=== PATIENT | female | born 1995 | race Caucasian/White ===

== ENCOUNTER 2019-06-08 18:21 | Emergency (ER) | payer OTHER ==
[2019-06-08] MEDS ORDERED: CLEOCIN300 MG PO (18:51)
[2019-06-08 18:59] VITALS: BP 125/77
== END 2019-06-08 18:59 | disposition home or self-care (01) | DRG 158 ==
LOC: ED 18:21
DX: K04.7 Periapical abscess without sinus (principal); K02.7 Dental root caries; M84.68XA Pathological fracture in other disease, other site, initial encounter for fracture

== ENCOUNTER 2019-07-22 | Emergency (ER) | payer OTHER ==
[~2019-07-22] MED LIST: CLEOCIN300 MG PO
[2019-07-22 02:06] LABS: HEMATOCRIT 34.6 % (37.0-47.0); HEMOGLOBIN 11.6 g/dl (12.0-16.0); IMMATURE GRANULOCYTES 0.2 % (0.0-5.0); MEAN CELL VOLUME 87.2 fL CALC (80.0-100.0); MEAN CORPUSCULAR HGB 29.2 pG CALC (26.0-32.0); MEAN CORPUSCULAR HGB CONC 33.5 g/dL CAL (32.0-36.0); NEUT# 7.31 thou/uL (2.00-7.15); RED BLOOD COUNT 3.97 mill/uL (4.20-5.60); RED CELL DISTRI WIDTH 13.6 % (11.5-15.5)
[2019-07-22 02:08] LABS: URINE BILIRUBIN - DIPSTICK NEGATIVE (NEGATIVE); URINE BLOOD DIPSTICK NEGATIVE (NEGATIVE); URINE COLOR YELLOW; URINE GLUCOSE - DIPSTICK NEGATIVE (NEGATIVE); URINE KETONE NEGATIVE (NEGATIVE); URINE NITRITE - DIPSTICK NEGATIVE (Negative); URINE PH 5.5 (4.5-8.0); URINE PROTEIN - DIPSTICK NEGATIVE (NEG-TRACE); URINE SPECIFIC GRAVITY >=1.030; URINE UROBILINOGEN - DIPSTICK 0.2 E.U./dL (0.2)
[2019-07-22 02:09] LABS: URINE LEUK ESTERASE TRACE (NEGATIVE)
[2019-07-22 02:19] LABS: ALBUMIN 3.9 g/dL (3.2-5.0); ALKALINE PHOSPHATASE 61 u/l (38-126); ANION GAP 11 (6-22 (CALC)); BILIRUBIN, TOTAL 0.5 mg/dL (0.0-1.4); BUN 10 mg/dL (7-17); CARBON DIOXIDE 25 mmol/l (22-30); CHLORIDE 103 mmol/l (95-108); CREATININE 0.6 mg/dL (0.5-1.0); POTASSIUM 3.5 mmol/l (3.5-5.1); SGOT/AST 19 u/l (14-36); SODIUM 136 mmol/l (137-146); TOTAL PROTEIN 6.8 g/dL (6.3-8.2)
[2019-07-22 02:31] LABS: BUN/CREATININE RATIO 17 (12-20 (CALC)); GFR > 60 ML/MIN (>=60 (CALC)); GFR FOR AFR.AMER. > 60 ML/MIN (>=60 (CALC))
[2019-07-22 03:02] LABS: BARBITURATES NEGATIVE (NEGATIVE); COCAINE NEGATIVE (NEGATIVE); METHADONE NEGATIVE (NEGATIVE); OXCYCODONE NEGATIVE (NEGATIVE); TETRAHYDROCANNABIONOL NEGATIVE (NEGATIVE); TRICYLIC ANTIDEPRESSANTS NEGATIVE (NEGATIVE)
== END 2019-07-22 08:00 | disposition short-term general hospital (02) | DRG 832 ==
PROVIDERS: Emergency Medicine
DX: O99.419 Diseases of the circulatory system complicating pregnancy, unspecified trimester (principal); G45.9 Transient cerebral ischemic attack, unspecified; G43.909 Migraine, unspecified, not intractable, without status migrainosus; Z3A.00 Weeks of gestation of pregnancy not specified

== ENCOUNTER 2019-08-04 18:28 | Emergency (ER) | payer OTHER ==
[~2019-08-04] VITALS: Ht 162.6 cm; Wt 75.0 kg
[2019-08-04 19:09] LABS: HEMATOCRIT 34.8 % (37.0-47.0); HEMOGLOBIN 11.7 g/dl (12.0-16.0); IMMATURE GRANULOCYTES 0.3 % (0.0-5.0); MEAN CELL VOLUME 87.2 fL CALC (80.0-100.0); MEAN CORPUSCULAR HGB 29.3 pG CALC (26.0-32.0); MEAN CORPUSCULAR HGB CONC 33.6 g/dL CAL (32.0-36.0); NEUT# 8.43 thou/uL (2.00-7.15); RED BLOOD COUNT 3.99 mill/uL (4.20-5.60); RED CELL DISTRI WIDTH 13.2 % (11.5-15.5)
[2019-08-04 19:10] LABS: URINE BILIRUBIN - DIPSTICK NEGATIVE (NEGATIVE); URINE BLOOD DIPSTICK NEGATIVE (NEGATIVE); URINE COLOR YELLOW; URINE GLUCOSE - DIPSTICK NEGATIVE (NEGATIVE); URINE KETONE NEGATIVE (NEGATIVE); URINE NITRITE - DIPSTICK NEGATIVE (Negative); URINE PH 5.5 (4.5-8.0); URINE PROTEIN - DIPSTICK NEGATIVE (NEG-TRACE); URINE SPECIFIC GRAVITY 1.025; URINE UROBILINOGEN - DIPSTICK 0.2 E.U./dL (0.2)
[2019-08-04 19:16] LABS: URINE LEUK ESTERASE MODERATE (NEGATIVE)
[2019-08-04 19:27] LABS: URINE SQUAMOUS EPITHELIAL CELL FEW EPI/hpf (0-FEW)
[2019-08-04 19:28] LABS: ALBUMIN 4.1 g/dL (3.2-5.0); ALKALINE PHOSPHATASE 67 u/l (38-126); ANION GAP 13 (6-22 (CALC)); BUN 8 mg/dL (7-17); BUN/CREATININE RATIO 14 (12-20 (CALC)); CARBON DIOXIDE 23 mmol/l (22-30); CHLORIDE 102 mmol/l (95-108); CREATININE 0.6 mg/dL (0.5-1.0); GFR > 60 ML/MIN (>=60 (CALC)); GFR FOR AFR.AMER. > 60 ML/MIN (>=60 (CALC)); POTASSIUM 3.8 mmol/l (3.5-5.1); SGOT/AST 18 u/l (14-36); SODIUM 134 mmol/l (137-146); TOTAL PROTEIN 7.2 g/dL (6.3-8.2)
[2019-08-04 19:31] LABS: BILIRUBIN, TOTAL 0.8 mg/dL (0.0-1.4)
[2019-08-04] MEDS ORDERED: KEFLEX500 M1 PO (21:04)
[2019-08-04] MEDS ORDERED: PRE-NATAL PO (21:04)
[2019-08-04 21:38] VITALS: BP 118/61
== END 2019-08-04 21:36 | disposition home or self-care (01) | DRG 832 ==
LOC: ED 18:28
PROVIDERS: Family Medicine
DX: O46.91 Antepartum hemorrhage, unspecified, first trimester (principal); O23.41 Unspecified infection of urinary tract in pregnancy, first trimester; Z3A.00 Weeks of gestation of pregnancy not specified

== ENCOUNTER 2020-07-09 | Emergency (ER) | payer OTHER ==
[~2020-07-09] MED LIST changes: +KEFLEX500 M1 PO; +PRE-NATAL PO
[2020-07-09 23:49] LABS: HEMATOCRIT 35.5 % (37.0-47.0); HEMOGLOBIN 11.2 g/dl (12.0-16.0); IMMATURE GRANULOCYTES 0.3 % (0.0-5.0); MEAN CELL VOLUME 81.4 fL CALC (80.0-100.0); MEAN CORPUSCULAR HGB 25.7 pG CALC (26.0-32.0); MEAN CORPUSCULAR HGB CONC 31.5 g/dL CAL (32.0-36.0); NEUT# 7.56 thou/uL (2.00-7.15); RED BLOOD COUNT 4.36 mill/uL (4.20-5.60); RED CELL DISTRI WIDTH 14.6 % (11.5-15.5)
[2020-07-10 00:01] LABS: ALBUMIN 4.4 g/dL (3.2-5.0); ALKALINE PHOSPHATASE 83 u/l (38-126); ANION GAP 11 (6-22 (CALC)); BILIRUBIN, TOTAL 0.8 mg/dL (0.0-1.4); BUN 13 mg/dL (7-17); BUN/CREATININE RATIO 24 (12-20 (CALC)); CARBON DIOXIDE 24 mmol/l (22-30); CHLORIDE 104 mmol/l (95-108); CREATININE 0.5 mg/dL (0.5-1.0); ETHYL ALCOHOL 0 mg/dl (0-30); GFR > 60 ML/MIN (>=60 (CALC)); GFR FOR AFR.AMER. > 60 ML/MIN (>=60 (CALC)); POTASSIUM 3.6 mmol/l (3.5-5.1); SGOT/AST 30 u/l (14-36); SODIUM 135 mmol/l (137-146); TOTAL PROTEIN 7.4 g/dL (6.3-8.2)
[2020-07-10 02:37] LABS: URINE BILIRUBIN - DIPSTICK NEGATIVE (NEGATIVE); URINE BLOOD DIPSTICK SMALL (NEGATIVE); URINE COLOR YELLOW; URINE GLUCOSE - DIPSTICK NEGATIVE (NEGATIVE); URINE KETONE NEGATIVE (NEGATIVE); URINE LEUK ESTERASE TRACE (NEGATIVE); URINE PH 5.5 (4.5-8.0); URINE SPECIFIC GRAVITY >=1.030; URINE UROBILINOGEN - DIPSTICK 0.2 E.U./dL (0.2)
[2020-07-10 02:44] LABS: URINE NITRITE - DIPSTICK NEGATIVE (Negative)
[2020-07-10 02:45] LABS: URINE PROTEIN - DIPSTICK NEGATIVE (NEG-TRACE)
[2020-07-10 02:46] LABS: URINE EPITHELIAL CELLS FEW EPI/hpf (0-FEW)
[2020-07-10 02:48] LABS: URINE BACTERIA FEW hpf
== END 2020-07-10 10:24 | DRG 918 ==
PROVIDERS: Emergency Medicine
DX: T43.222A Poisoning by selective serotonin reuptake inhibitors, intentional self-harm, initial encounter (principal); F32.9 Major depressive disorder, single episode, unspecified; Z91.5 Personal history of self-harm

== ENCOUNTER 2020-10-27 08:44 | Emergency (ER) | payer OTHER ==
[2020-10-27] MEDS ORDERED: ZOFRAN4 MG/TAB PO (10:59)
[2020-10-27 11:12] VITALS: BP 121/74
== END 2020-10-27 11:11 | disposition home or self-care (01) ==
LOC: ED 08:44
DX: G43.909 Migraine, unspecified, not intractable, without status migrainosus (principal)

== ENCOUNTER 2021-05-28 14:36 | Emergency (ER) | payer OTHER ==
[~2021-05-28] VITALS: Ht 162.6 cm; Wt 77.5 kg
[~2021-05-28 14:36] MED LIST changes: +ZOFRAN4 MG/TAB PO
[2021-05-28 14:45] VITALS: BP 116/73
[2021-05-28 15:00] VITALS: BP 96/65
[2021-05-28 15:30] VITALS: BP 124/78
[2021-05-28] MEDS ORDERED: KEFLEX500 MG PO (15:41)
[2021-05-28 15:49] VITALS: BP 124/78
== END 2021-05-28 16:01 | disposition home or self-care (01) ==
LOC: ED 14:36
DX: S21.212A Laceration without foreign body of left back wall of thorax without penetration into thoracic cavity, initial encounter (principal); W26.8XXA Contact with other sharp object(s), not elsewhere classified, initial encounter; Y93.89 Activity, other specified

== ENCOUNTER → 2021-06-08 | Emergency (ER) | payer OTHER ==
[~2021-06-08] MED LIST changes: +KEFLEX500 MG PO
== END | disposition home or self-care (01) | DRG 951 ==
LOC: ED 13:30 → LWOBS 14:35
DX: Z53.21 Procedure and treatment not carried out due to patient leaving prior to being seen by health care provider (principal)

== ENCOUNTER 2021-06-11 08:30 | Emergency (ER) | payer OTHER ==
[~2021-06-11] VITALS: Ht 162.6 cm; Wt 88.0 kg
[2021-06-11 08:53] VITALS: BP 104/65
[2021-06-11] MEDS ORDERED: LAMICTAL XR50 MG PO (09:01)
[2021-06-11 09:32] VITALS: BP 104/65
== END 2021-06-11 09:32 | disposition home or self-care (01) ==
LOC: ED 08:30
DX: S41.012D Laceration without foreign body of left shoulder, subsequent encounter (principal); X58.XXXD Exposure to other specified factors, subsequent encounter

== ENCOUNTER 2022-04-27 21:13 | Emergency (ER) | payer OTHER ==
[~2022-04-27] VITALS: Ht 162.6 cm; Wt 93.6 kg
[~2022-04-27 21:13] MED LIST changes: +LAMICTAL XR50 MG PO
[2022-04-27 22:28] VITALS: BP 119/76
== END 2022-04-27 22:36 | disposition home or self-care (01) ==
LOC: ED 21:13
DX: S00.33XA Contusion of nose, initial encounter (principal); W50.0XXA Accidental hit or strike by another person, initial encounter; Y92.009 Unspecified place in unspecified non-institutional (private) residence as the place of occurrence of the external cause

== ENCOUNTER 2022-08-26 17:08 | Emergency (ER) | payer OTHER ==
[2022-08-26] VITALS (15 sets, daily range): BP systolic 101–120; BP diastolic 49–79
[~2022-08-26] VITALS: Ht 162.6 cm; Wt 90.0 kg
[2022-08-26] MEDS ORDERED: DESYREL50 MG PO (17:31)
[2022-08-26] MEDS ORDERED: FLUOXETINE HCL40 MG PO (17:31)
[2022-08-26] MEDS ORDERED: ZIPRASIDONE HCL80 MG PO (17:31)
[2022-08-26 17:51] LABS: BASO% 0.2 % (0-3); EOS% 2.6 % (0-8); IMMATURE GRANULOCYTES 0.1 % (0.0-5.0); LYMPH% 19.1 % (15-41); MEAN CORPUSCULAR HGB 28.3 pG CALC (26.0-32.0); MEAN CORPUSCULAR HGB CONC 31.1 g/dL CAL (32.0-36.0); MONO% 5.8 % (2-13); NEUT# 8.78 thou/uL (2.00-7.15); NEUT% 72.2 % (42-76); RED BLOOD COUNT 4.92 mill/uL (4.20-5.60); RED CELL DISTRI WIDTH 12.8 % (11.5-15.5)
[2022-08-26 17:54] LABS: HEMATOCRIT 44.7 % (37.0-47.0); HEMOGLOBIN 13.9 g/dl (12.0-16.0); MEAN CELL VOLUME 90.9 fL CALC (80.0-100.0)
[2022-08-26 17:57] LABS: ALBUMIN 4.4 g/dL (3.2-5.0); ALKALINE PHOSPHATASE 82 u/l (38-126); BILIRUBIN, TOTAL 0.5 mg/dL (0.02-1.3); BUN 8 mg/dL (7-17); BUN/CREATININE RATIO 14 (12-20 (CALC)); CARBON DIOXIDE 23 mmol/l (22-30); CHLORIDE 106 mmol/l (95-108); CREATININE 0.5 mg/dL (0.5-1.0); GFR FOR AFR.AMER. > 60 ML/MIN (>=60 (CALC)); GFR OTHER RACES > 60 ML/MIN (>=60 (CALC)); SGOT/AST 21 u/l (14-36); SODIUM 137 mmol/l (137-146); TOTAL PROTEIN 6.9 g/dL (6.3-8.2); URINE BILIRUBIN - DIPSTICK NEGATIVE (NEGATIVE); URINE BLOOD DIPSTICK NEGATIVE (NEGATIVE); URINE COLOR YELLOW; URINE GLUCOSE - DIPSTICK NEGATIVE (NEGATIVE); URINE KETONE NEGATIVE (NEGATIVE); URINE LEUK ESTERASE TRACE (NEGATIVE); URINE PH 5.5 (4.5-8.0); URINE PROTEIN - DIPSTICK NEGATIVE (NEG-TRACE); URINE SPECIFIC GRAVITY >=1.030; URINE UROBILINOGEN - DIPSTICK 0.2 E.U./dL (0.2)
[2022-08-26 17:58] LABS: ANION GAP 12 (6-22 (CALC)); POTASSIUM 4.4 mmol/l (3.5-5.1); URINE NITRITE - DIPSTICK NEGATIVE (Negative)
[2022-08-26] MEDS ORDERED: ONDANSETRON4 MG PO (20:41)
== END 2022-08-26 20:44 | disposition home or self-care (01) ==
LOC: ED 17:08
PROVIDERS: Family Medicine
DX: A08.4 Viral intestinal infection, unspecified (principal)

== ENCOUNTER 2024-02-20 20:21 | Observation (INO) | payer BC, OTHER ==
[~2024-02-20] VITALS: Ht 162.6 cm; Wt 91.0 kg
[2024-02-20] VITALS (8 sets, daily range): BP systolic 90–118; BP diastolic 57–70
[~2024-02-20 20:21] MED LIST changes: +DESYREL50 MG PO; +FLUOXETINE HCL40 MG PO; +ONDANSETRON4 MG PO; +ZIPRASIDONE HCL80 MG PO
[2024-02-20] MEDS ORDERED: FAMOTIDINE 10MG/ML 2ML SDV IV ONE (22:20)
[2024-02-20] MEDS ORDERED: METOCLOPRAMIDE HCL 10 MG/2 ML SDV IV ONE (22:20)
[2024-02-20] MEDS ORDERED: LACTATED RINGER'S 1,000 ML IV ONE (22:20)
[2024-02-20] MEDS ORDERED: ISOVUE-300 (Iopamidol) 100 ML SDV IV ONE (22:20)
[2024-02-20] MEDS ORDERED: DiphenhydrAMINE HCL 50 MG/ML SDV IV ONE (22:20)
[2024-02-20] MEDS ORDERED: Pantoprazole Sodium 40 MG VIAL (Protonix) IV ONE (22:20)
[2024-02-20] MEDS ORDERED: HYDROmorphone HCL 2 MG/AMP IV ONE (22:30)
[2024-02-20 22:52] LABS: BASO% 0.3 % (0-3); EOS% 0.4 % (0-8); IMMATURE GRANULOCYTES 0.3 % (0.0-5.0); LYMPH% 15.5 % (15-41); MEAN CORPUSCULAR HGB 27.2 pG CALC (26.0-32.0); MEAN CORPUSCULAR HGB CONC 32.3 g/dL CAL (32.0-36.0); MONO% 7.1 % (2-13); NEUT# 8.9 thou/uL (2.00-7.15); NEUT% 76.4 % (42-76); RED BLOOD COUNT 4.3 mill/uL (4.20-5.60); RED CELL DISTRI WIDTH 13.3 % (11.5-15.5)
[2024-02-20 22:53] LABS: HEMATOCRIT 36.2 % (37.0-47.0); HEMOGLOBIN 11.7 g/dl (12.0-16.0); MEAN CELL VOLUME 84.2 fL CALC (80.0-100.0)
[2024-02-20 23:00] LABS: ALBUMIN 4.1 g/dL (3.2-5.0); POTASSIUM 3.9 mmol/l (3.5-5.1); TOTAL PROTEIN 6.6 g/dL (6.3-8.2)
[2024-02-20 23:08] LABS: BILIRUBIN, TOTAL 0.9 mg/dL (0.02-1.3); CREATININE 0.8 mg/dL (0.5-1.0)
[2024-02-21] VITALS (31 sets, daily range): BP systolic 94–126; BP diastolic 51–90
[2024-02-21] MEDS ORDERED: DiphenhydrAMINE HCL 50 MG/ML SDV IV PRN (03:55)
[2024-02-21] MEDS ORDERED: METOCLOPRAMIDE HCL 10 MG/2 ML SDV IV PRN (03:55)
[2024-02-21] MEDS ORDERED: ACETAMINOPHEN 500 MG TAB PO PRN (04:00)
[2024-02-21] MEDS ORDERED: MORPHINE SULFATE 4 MG/ML VIAL IV PRN (04:00)
[2024-02-21] MEDS ORDERED: MORPHINE SULFATE 4 MG/ML VIAL IV ONE ×2 (04:10→13:54)
[2024-02-21] MEDS ORDERED: LACTATED RINGER'S 1,000 ML IV ONE (05:46)
[2024-02-21] MEDS ORDERED: FAMOTIDINE 10MG/ML 2ML SDV IV ONE (10:18)
[2024-02-21] MEDS ORDERED: SODIUM CHLORIDE 0.9% 100 ML IV ONE (10:26)
[2024-02-21] MEDS ORDERED: ceFAZolin Sodium 2 GM/VIAL SDV ONE (10:26)
[2024-02-21] MEDS ORDERED: STERILE WATER FOR IRRIGATION 1,000 ML BTL IR ONE (10:29)
[2024-02-21] MEDS ORDERED: SODIUM CHLORIDE 1,000 ML BTL IR ONE (10:29)
[2024-02-21] MEDS ORDERED: LIDOcaine HCl 1% (Local Anesth.) 20 ML VIAL ONE (10:29)
[2024-02-21] MEDS ORDERED: PERCOCET 5/321 COMBO PO (10:54)
[2024-02-21] MEDS ORDERED: HYDROmorphone HCL 2 MG/AMP ONE (12:03)
[2024-02-21] MEDS ORDERED: ONDANSETRON HCl 4 MG/2 ML SDV IV ONE (13:54)
[2024-02-21] MEDS ORDERED: SUGAMMADEX SODIUM 200 MG/2 ML SDV IV ONE (13:54)
[2024-02-21] MEDS ORDERED: ROCURONIUM BROMIDE 10 MG/ML 5ML VIAL IV ONE (13:54)
[2024-02-21] MEDS ORDERED: MIDAZOLAM HCL 2 MG/2 ML VIAL IV ONE (13:54)
[2024-02-21] MEDS ORDERED: LIDOCAINE HCL 2% 2ML SDV IV ONE (13:54)
[2024-02-21] MEDS ORDERED: DiphenhydrAMINE HCL 50 MG/ML SDV IV ONE (13:54)
[2024-02-21] MEDS ORDERED: SUCCINYLCHOLINE CHLORIDE 20 MG/ML 10ML VIAL IV ONE (13:54)
[2024-02-21] MEDS ORDERED: PROPOFOL 200 MG/20 ML VIAL IV ONE (13:54)
[2024-02-21] MEDS ORDERED: LACTATED RINGER'S 1,000 ML BAG IV ONE (13:54)
[2024-02-21] MEDS ORDERED: KETOROLAC TROMETHAMINE 30 MG/ML SDV IV ONE (13:54)
[2024-02-21] MEDS ORDERED: DEXAMETHASONE SODIUM PHOSPHATE PF 10 MG/ML SDV IV ONE (13:54)
== END 2024-02-21 13:24 | disposition home or self-care (01) | DRG 419 ==
LOC: ED 20:21 → ED-I 02-21 03:40 → ED 02-21 03:57 → ED-I 02-21 03:58
PROVIDERS: Emergency Medicine; ADMIT Surgery; ATTEND Surgery
PROC: 0FT44ZZ Resection of Gallbladder, Percutaneous Endoscopic Approach (ICD-10-PCS; principal; 2024-02-21)
DX: K80.00 Calculus of gallbladder with acute cholecystitis without obstruction (principal)
CPT/HCPCS: J0690; J1100; J2470; Q9967

== ENCOUNTER 2024-02-23 07:00 | Emergency (ER) | payer BC, OTHER ==
[~2024-02-23] VITALS: Ht 162.6 cm; Wt 89.0 kg
[2024-02-23] VITALS (10 sets, daily range): BP systolic 108–121; BP diastolic 68–76
[~2024-02-23 07:00] MED LIST changes: +PERCOCET 5/321 COMBO PO
[2024-02-23] MEDS ORDERED: ONDANSETRON HCl 4 MG/2 ML SDV IV ONE (07:25)
[2024-02-23] MEDS ORDERED: ISOVUE-300 (Iopamidol) 100 ML SDV IV ONE (07:25)
[2024-02-23] MEDS ORDERED: SODIUM CHLORIDE 0.9% 1,000 ML IV ONE (07:25)
[2024-02-23] MEDS ORDERED: MORPHINE SULFATE 4 MG/ML VIAL IV ONE (07:25)
[2024-02-23 07:50] LABS: BASO% 0.3 % (0-3); EOS% 0.1 % (0-8); HEMOGLOBIN 11.4 g/dl (12.0-16.0); IMMATURE GRANULOCYTES 0.7 % (0.0-5.0); LYMPH% 10.9 % (15-41); MEAN CELL VOLUME 84.7 fL CALC (80.0-100.0); MEAN CORPUSCULAR HGB 26.8 pG CALC (26.0-32.0); MEAN CORPUSCULAR HGB CONC 31.7 g/dL CAL (32.0-36.0); NEUT# 8.68 thou/uL (2.00-7.15); RED BLOOD COUNT 4.25 mill/uL (4.20-5.60); RED CELL DISTRI WIDTH 13.8 % (11.5-15.5)
[2024-02-23 08:01] LABS: ALBUMIN 3.8 g/dL (3.2-5.0); BILIRUBIN, TOTAL 2.4 mg/dL (0.02-1.3); CREATININE 0.6 mg/dL (0.5-1.0); POTASSIUM 3.8 mmol/l (3.5-5.1); TOTAL PROTEIN 6.2 g/dL (6.3-8.2)
[2024-02-23] MEDS ORDERED: PROMETHAZINE HCL 25 MG/ML AMP IV ONE (09:30)
[2024-02-23] MEDS ORDERED: HYDROmorphone HCL 2 MG/AMP IV ONE (09:30)
== END 2024-02-23 10:59 | disposition short-term general hospital (02) | DRG 395 ==
LOC: ED 07:00
PROVIDERS: Family Medicine
DX: K91.86 Retained cholelithiasis following cholecystectomy (principal); Y83.6 Removal of other organ (partial) (total) as the cause of abnormal reaction of the patient, or of later complication, without mention of misadventure at the time of the procedure
CPT/HCPCS: J1171; J2405; Q9967